=== PATIENT | female | born 1945 | race African-American/Black ===

== ENCOUNTER 2017-05-02 12:58 | Inpatient (IN) | payer MEDICARE, MEDICAID ==
[~2017-05-02] VITALS: Ht 152.4 cm; Wt 83.9 kg
[2017-05-02] MEDS ORDERED: ALBUTEROL (0.083%) 2.5MG/3ML NEB HHN STA (15:26)
[2017-05-02 16:04] LABS: BASOPHILS % 0.1 % (0.0-2.0); HEMOGLOBIN. 9.4 g/dL (14.0-18.0); LYMPHOCYTES % 9.1 % (20.0-50.0); MEAN CORPUSCULAR HEMOGLOBIN 24.7 pg (28.0-32.0); MEAN CORPUSCULAR VOLUME 73.9 fL (80.0-94.0); MEAN PLATELET VOLUME 7.9 fl (7.4-10.4); MONOCYTES % 8.9 % (2.0-8.0); NEUTROPHILS % 81.9 % (40.0-76.0); PLATELET 476 x1000/uL (130-400); RED BLOOD CELL COUNT 3.79 mill/uL (4.7-6.1); RED CELL DISTRIBUTION WIDTH 18.5 % (11.6-14.6)
[2017-05-02 16:11] LABS: INR 1.2; PROTHROMBIN TIME 12.2 sec (9.4-11.6)
[2017-05-02 16:12] LABS: CHLORIDE 92 mEq/L (98-107)
[2017-05-02] MEDS ORDERED: POTASSIUM CHLORIDE 20MEQ TABLET SR PO ONE (16:45)
[2017-05-02] MEDS ORDERED: FUROSEMIDE 40MG/4ML VIAL IVP ONE (16:45)
[2017-05-02 16:54] LABS: BG BASE EXCESS 3.6 mmol/L (-2.0-2.0); BG CARBOXYHEMOGLOBIN 0.6 % (0.5-1.5); BG DEOXYHEMOGLOBIN 3.9 % (0.0-5.0); BG FRACTION INSPIRED OXYGEN 32; BG HCO3 ACT 28.7 mmol/L (22.0-26.0); BG METHEMOGLOBIN 0.3 % (0.0-1.5); BG OXYGEN SATURATION 96.1 % (92.0-98.5); BG OXYHEMOGLOBIN 95.2 % (94.0-97.0); BG PH 7.413 (7.350-7.450); BG PO2 98.3 mmHg (75.0-100.0); BG SAMPLE SITE RIGHT BRACHIAL; BG VENT MODE NASAL CANNULA
[2017-05-02] MEDS ORDERED: IPRATROPIUM/ALBUTEROL 0.5-3(2.5)MG/3ML NEB INH PRN (18:00)
[2017-05-02] MEDS ORDERED: GUAIFENESIN 200MG/10ML SUGAR FREE UDC PO PRN (18:00)
[2017-05-02] MEDS ORDERED: NA PHOS,M-B/NA PHOS,DI-BA ENEMA 118ML PR PRN (18:00)
[2017-05-02] MEDS ORDERED: ONDANSETRON HCL 4MG/2ML VIAL IV PRN (18:00)
[2017-05-02] MEDS ORDERED: DOCUSATE SODIUM 100MG CAPSULE PO PRN (18:00)
[2017-05-02] MEDS ORDERED: MORPHINE SULFATE 4 MG/ML CPJ (NOT FOR IM USE) IV PRN (18:00)
[2017-05-02] MEDS ORDERED: CLONIDINE 0.1MG TABLET PO PRN (18:00)
[2017-05-02] MEDS ORDERED: NITROGLYCERIN 0.4MG TABLET SL SL PRN (18:00)
[2017-05-02] MEDS ORDERED: DIPHENHYDRAMINE 50MG/ML VIAL IV PRN (18:00)
[2017-05-02] MEDS ORDERED: ACETAMINOPHEN 325MG TABLET PO PRN (18:00)
[2017-05-02] MEDS ORDERED: LORAZEPAM 0.5MG TABLET PO PRN (18:00)
[2017-05-02] MEDS ORDERED: MAGNESIUM/ALUMINUM HYDROXIDE/SIMETHICONE 30ML UDC PO PRN (18:00)
[2017-05-02] MEDS ORDERED: ZOLPIDEM TARTRATE 5MG TABLET PO PRN (18:00)
[2017-05-02] MEDS ORDERED: TRAMADOL 50MG TABLET PO PRN (18:00)
[2017-05-02 20:00] VITALS: BP_SYST 136; BP_SYST 145; BP_DIAS 82; BP_DIAS 86
[2017-05-02] MEDS ORDERED: KCL 20MEQ/100ML PREMIX 100 ML IV NR (20:00)
[2017-05-02] MEDS ORDERED: ENOXAPARIN 40MG/0.4ML SYR SUBCUT SCH (21:00)
[2017-05-02] MEDS ORDERED: POTASSIUM CHLORIDE 20MEQ TABLET SR PO NR (21:00)
[2017-05-02] MEDS: FAMOTIDINE 20MG/2ML VIAL IV SCH (21:37)
[2017-05-02] MEDS: FUROSEMIDE 40MG/4ML VIAL IVP SCH (21:37)
[2017-05-02] MEDS: GUAIFENESIN/DM 600MG/30MG ER TAB 12HR PO SCH (21:38)
[2017-05-02] MEDS: SPIRONOLACTONE 25MG TABLET PO SCH (21:41)
[2017-05-02] MEDS: LISINOPRIL 20MG TABLET PO SCH (21:42)
[2017-05-02 22:00] VITALS: BP 147/77
[2017-05-03] VITALS (13 sets, daily range): BP systolic 112–143; BP diastolic 48–87
[2017-05-03] LABS: CREATINE KINASE MB FRACTION 29.3 ng/mL (0.5-3.6)
[2017-05-03 07:16] LABS: CREATINE KINASE MB FRACTION 24.9 ng/mL (0.5-3.6)
[2017-05-03] MEDS: LISINOPRIL 20MG TABLET PO SCH ×2 (09:23→20:26)
[2017-05-03] MEDS: GUAIFENESIN/DM 600MG/30MG ER TAB 12HR PO SCH ×2 (09:23→20:23)
[2017-05-03] MEDS: FUROSEMIDE 40MG/4ML VIAL IVP SCH ×2 (09:23→20:25)
[2017-05-03] MEDS: SPIRONOLACTONE 25MG TABLET PO SCH ×2 (09:23→20:26)
[2017-05-03] MEDS: FAMOTIDINE 20MG/2ML VIAL IV SCH ×2 (09:23→20:25)
[2017-05-03] MEDS: ASPIRIN 325MG EC TABLET PO SCH (09:23)
[2017-05-03 10:23] LABS: CHLORIDE 95 mEq/L (98-107)
[2017-05-03 14:52] LABS: HEMATOCRIT 26.9 % (42.0-52.0); HEMOGLOBIN 8.9 g/dL (14.0-18.0); MEAN CORPUSCULAR HEMOGLOBIN 24.7 pg (28.0-32.0); MEAN CORPUSCULAR VOLUME 74.6 fL (80.0-94.0); PLATELET 438 x1000/uL (130-400); RED CELL DISTRIBUTION WIDTH 18.6 % (11.6-14.6)
[2017-05-03 15:22] LABS: AMMONIA < 25 uMol/L (<32)
[2017-05-03 15:23] LABS: TOTAL IRON BINDING CAPACITY 189 ug/dL (250-450)
[2017-05-03 16:11] LABS: HEPATITIS B SURFACE ANTIGEN NEGATIVE
[2017-05-03 16:39] LABS: HEPATITIS B CORE AB IGM NEGATIVE
[2017-05-03 16:40] LABS: HEPATITIS A AB IGM NEGATIVE (NEGATIVE)
[2017-05-03] MEDS: MONTELUKAST SODIUM 10MG TABLET PO SCH (18:03)
[2017-05-03] MEDS: ENOXAPARIN 30MG/0.3ML SYR SUBCUT SCH (20:25)
[2017-05-03] MEDS: IPRATROPIUM/ALBUTEROL 0.5-3(2.5)MG/3ML NEB HHN SCH (21:09)
[2017-05-03 22:05] LABS: CLARITY URINE CLOUDY (CLEAR); COLOR URINE YELLOW (YELLOW); KETONES URINE NEGATIVE (NEGATIVE); LEUKOCYTE ESTERASE URINE TRACE (NEGATIVE); NITRITE URINE NEGATIVE (NEGATIVE); OCCULT BLOOD URINE 2+ (NEGATIVE); PROTEIN URINE 4+ (NEGATIVE); SPECIFIC GRAVITY URINE 1.019 (1.005-1.030); UROBILINOGEN URINE 0.2 E.U./dL (0.2-1.0)
[2017-05-03 22:14] LABS: *AMPHETAMINES SCREEN URINE NEGATIVE (NEGATIVE); *BARBITURATES SCREEN URINE NEGATIVE (NEGATIVE); *BENZODIAZEPINES SCREEN URINE NEGATIVE (NEGATIVE); *COCAINE SCREEN URINE NEGATIVE (NEGATIVE); CANNABINOID URINE SCREEN NEGATIVE (NEGATIVE); METHADONE URINE SCREEN NEGATIVE (NEGATIVE); OPIATES URINE SCREEN NEGATIVE (NEGATIVE); PHENCYCLIDINE URINE SCREEN NEGATIVE (NEGATIVE)
[2017-05-04] VITALS (12 sets, daily range): BP systolic 135–168; BP diastolic 54–89
[2017-05-04] MEDS: IPRATROPIUM/ALBUTEROL 0.5-3(2.5)MG/3ML NEB HHN SCH ×4 (02:50→20:30)
[2017-05-04] MEDS: FUROSEMIDE 40MG/4ML VIAL IVP SCH ×2 (08:17→20:37)
[2017-05-04] MEDS: FAMOTIDINE 20MG/2ML VIAL IV SCH ×2 (08:17→20:37)
[2017-05-04] MEDS: GUAIFENESIN/DM 600MG/30MG ER TAB 12HR PO SCH ×2 (08:17→20:37)
[2017-05-04] MEDS: LISINOPRIL 20MG TABLET PO SCH ×2 (08:18→20:37)
[2017-05-04] MEDS: ASPIRIN 325MG EC TABLET PO SCH (08:18)
[2017-05-04] MEDS: SPIRONOLACTONE 25MG TABLET PO SCH ×2 (08:18→20:37)
[2017-05-04] MEDS: ENOXAPARIN 30MG/0.3ML SYR SUBCUT SCH (08:19)
[2017-05-04] MEDS ORDERED: LEVOFLOXACIN 250MG TABLET PO SCH (11:00)
[2017-05-04] MEDS: MONTELUKAST SODIUM 10MG TABLET PO SCH (16:58)
[2017-05-04 18:01] LABS: FOLIC ACID (FOLATE) SERUM 9.7 ng/mL (>5.38)
[2017-05-05] VITALS (14 sets, daily range): BP systolic 127–163; BP diastolic 61–111
[2017-05-05] MEDS: IPRATROPIUM/ALBUTEROL 0.5-3(2.5)MG/3ML NEB HHN SCH ×4 (02:30→21:24)
[2017-05-05 08:13] LABS: BASOPHILS % 0.1 % (0.0-2.0); HEMATOCRIT. 25.8 % (36.0-48.0); HEMOGLOBIN. 8.6 g/dL (12.0-16.0); LYMPHOCYTES % 9.4 % (20.0-50.0); MEAN CORPUSCULAR HEMOGLOBIN 24.7 pg (28.0-32.0); MEAN CORPUSCULAR VOLUME 74.2 fL (81.0-99.0); MEAN PLATELET VOLUME 7.9 fl (7.4-10.4); MONOCYTES % 5.4 % (2.0-8.0); NEUTROPHILS % 85.1 % (40.0-76.0); PLATELET 521 x1000/uL (130-400); RED BLOOD CELL COUNT 3.48 mill/uL (4.2-5.4); RED CELL DISTRIBUTION WIDTH 18.9 % (11.6-14.6)
[2017-05-05 08:33] LABS: CHLORIDE 96 mEq/L (98-107)
[2017-05-05] MEDS ORDERED: ENOXAPARIN 40MG/0.4ML SYR SUBCUT SCH (09:00)
[2017-05-05] MEDS ORDERED: POTASSIUM CHLORIDE 20MEQ TABLET SR PO NR ×2 (09:15→16:00)
[2017-05-05] MEDS: SPIRONOLACTONE 25MG TABLET PO SCH ×2 (09:24→21:00)
[2017-05-05] MEDS: LISINOPRIL 20MG TABLET PO SCH ×2 (09:24→21:00)
[2017-05-05] MEDS: FUROSEMIDE 40MG/4ML VIAL IVP SCH ×2 (09:25→21:41)
[2017-05-05] MEDS: FAMOTIDINE 20MG/2ML VIAL IV SCH (09:25)
[2017-05-05] MEDS: ASPIRIN 325MG EC TABLET PO SCH (09:25)
[2017-05-05] MEDS: GUAIFENESIN/DM 600MG/30MG ER TAB 12HR PO SCH ×2 (09:29→21:00)
[2017-05-05 09:34] LABS: BG BASE EXCESS 4.9 mmol/L (-2.0-2.0); BG CARBOXYHEMOGLOBIN 0.3 % (0.5-1.5); BG DEOXYHEMOGLOBIN 4.8 % (0.0-5.0); BG FRACTION INSPIRED OXYGEN 32; BG HCO3 ACT 31.3 mmol/L (22.0-26.0); BG METHEMOGLOBIN 0.1 % (0.0-1.5); BG OXYGEN SATURATION 95.2 % (92.0-98.5); BG OXYHEMOGLOBIN 94.8 % (94.0-97.0); BG PH 7.357 (7.350-7.450); BG PO2 91.1 mmHg (75.0-100.0); BG SAMPLE SITE LEFT RADIAL; BG VENT MODE NASAL CANNULA
[2017-05-05] MEDS ORDERED: HALOPERIDOL LACTATE 5MG/ML VIAL IM PRN (10:30)
[2017-05-05] MEDS ORDERED: LACTULOSE 20G/30ML UDC PO PRN ×2 (10:57→21:00)
[2017-05-05] MEDS ORDERED: LEVOFLOXACIN 500MG TABLET PO SCH (11:00)
[2017-05-05] MEDS ORDERED: LEVOFLOXACIN 250MG TABLET PO SCH (11:00)
[2017-05-05] MEDS: AMLODIPINE 2.5MG TABLET PO SCH ×2 (13:42→21:00)
[2017-05-05] MEDS ORDERED: BUDESONIDE 0.5MG/2ML NEB HHN SCH (14:30)
[2017-05-05] MEDS: MONTELUKAST SODIUM 10MG TABLET PO SCH (16:14)
[2017-05-05] MEDS ORDERED: LEVOFLOXACIN 750MG PREMIX 150 ML IV SCH (16:45)
[2017-05-05] MEDS ORDERED: CEFTRIAXONE 1 G PREMIX 50 ML IV SCH (20:00)
[2017-05-06] VITALS: BP 128/76
[2017-05-06] MEDS ORDERED: POTASSIUM CHLORIDE 20MEQ TABLET SR PO SCH (09:00)
[2017-05-06] MEDS ORDERED: FAMOTIDINE 20MG/2ML VIAL IV SCH (09:00)
== END 2017-05-06 01:45 | disposition short-term general hospital (02) | DRG 720 ==
LOC: ER 12:58 → EDBEDREQSVC 16:43 → EDBEDREQ 16:43 → 3WST 16:57 → EDSEX 16:57 → EDBEDREQTM 17:00 → EDBEDREQ 17:00 → SUPCPDRO 17:50 → ENRESERV 17:54
PROVIDERS: ADMIT Internal Medicine; ATTEND Internal Medicine
PROC: 5A09357 Assistance with Respiratory Ventilation, Less than 24 Consecutive Hours, Continuous Positive Airway Pressure (ICD-10-PCS; principal; 2017-05-02)
DX: A41.9 Sepsis, unspecified organism (principal); J96.00 Acute respiratory failure, unspecified whether with hypoxia or hypercapnia; N17.0 Acute kidney failure with tubular necrosis; E43 Unspecified severe protein-calorie malnutrition; I50.23 Acute on chronic systolic (congestive) heart failure; I31.3 Pericardial effusion (noninflammatory); E87.0 Hyperosmolality and hypernatremia; J18.9 Pneumonia, unspecified organism; E83.51 Hypocalcemia; I11.0 Hypertensive heart disease with heart failure; I48.0 Paroxysmal atrial fibrillation; I27.20 Pulmonary hypertension, unspecified; E87.6 Hypokalemia; E87.1 Hypo-osmolality and hyponatremia; E78.2 Mixed hyperlipidemia; D50.9 Iron deficiency anemia, unspecified; D63.8 Anemia in other chronic diseases classified elsewhere; J44.1 Chronic obstructive pulmonary disease with (acute) exacerbation; M62.82 Rhabdomyolysis; J44.0 Chronic obstructive pulmonary disease with (acute) lower respiratory infection; N39.0 Urinary tract infection, site not specified; Z87.891 Personal history of nicotine dependence
CPT/HCPCS: 36415; 36600; 70551; 71045; 71250; 76700; 80048; 80053; 80061; 80305; 81003; 82140; 82375; 82550; 82553; 82607; 82693; 82746; 82805; 83036; 83540; 83550; 83735; 83880; 84132; 84443; 84484; 85025; 85027; 85610; 86705; 86709; 86803; 87340; 93005; 93306; 93970; 94640; 94660; 96374; 97116; 97162; 97166; 97530; 97535; 99285; J0696; J1630; J1650; J1940; J3480; J3490; J7050; J7611; J7620

== ENCOUNTER 2017-06-01 08:18 | Inpatient (IN) | payer MEDICARE, MEDICAID ==
[~2017-06-01] VITALS: Ht 152.4 cm; Wt 76.2 kg
[2017-06-01] MEDS ORDERED: NITROGLYCERIN OINT 1GM/INCH UDPKT TD STA (09:32)
[2017-06-01] MEDS ORDERED: ASPIRIN 81MG TABLET PO STA (09:32)
[2017-06-01] MEDS ORDERED: FUROSEMIDE 40MG/4ML VIAL IV STA (09:32)
[2017-06-01 10:00] LABS: BASOPHILS % 0.2 % (0.0-2.0); HEMATOCRIT. 31.8 % (36.0-48.0); HEMOGLOBIN. 10.1 g/dL (12.0-16.0); LYMPHOCYTES % 11.8 % (20.0-50.0); MEAN CORPUSCULAR HEMOGLOBIN 25.4 pg (28.0-32.0); MEAN CORPUSCULAR VOLUME 79.9 fL (81.0-99.0); MEAN PLATELET VOLUME 8.3 fl (7.4-10.4); MONOCYTES % 7.6 % (2.0-8.0); NEUTROPHILS % 80.4 % (40.0-76.0); PLATELET 374 x1000/uL (130-400); RED BLOOD CELL COUNT 3.97 mill/uL (4.2-5.4); RED CELL DISTRIBUTION WIDTH 24.7 % (11.6-14.6)
[2017-06-01 10:06] LABS: CHLORIDE 100 mEq/L (98-107)
[2017-06-01 10:08] LABS: INR 1.6; PARTIAL THROMBOPLASTIN TIME 26.9 sec (23.4-31.0); PROTHROMBIN TIME 16.4 sec (9.4-11.6)
[2017-06-01 10:29] LABS: PLATELET ESTIMATE NORMAL
[2017-06-01] MEDS ORDERED: POTASSIUM CHLORIDE 10MEQ TABLET SR PO ONE (11:15)
[2017-06-01] MEDS ORDERED: DIPHENHYDRAMINE 50MG/ML VIAL IV PRN (13:45)
[2017-06-01] MEDS ORDERED: ACETAMINOPHEN 325MG TABLET PO PRN (13:45)
[2017-06-01] MEDS ORDERED: HYDROCODONE/ACETAMINOPHEN 5/325MG TABLET PO PRN (13:45)
[2017-06-01] MEDS ORDERED: POTASSIUM CHLORIDE 20MEQ TABLET SR PO NR (13:45)
[2017-06-01] MEDS ORDERED: CLONIDINE 0.1MG TABLET PO PRN ×2 (13:45→16:28)
[2017-06-01] MEDS ORDERED: ONDANSETRON HCL 4MG/2ML VIAL IV PRN (13:45)
[2017-06-01 14:34] LABS: *AMPHETAMINES SCREEN URINE NEGATIVE (NEGATIVE); *BARBITURATES SCREEN URINE NEGATIVE (NEGATIVE)
[2017-06-01 14:35] LABS: *BENZODIAZEPINES SCREEN URINE NEGATIVE (NEGATIVE); *COCAINE SCREEN URINE NEGATIVE (NEGATIVE); CANNABINOID URINE SCREEN NEGATIVE (NEGATIVE); METHADONE URINE SCREEN NEGATIVE (NEGATIVE); OPIATES URINE SCREEN NEGATIVE (NEGATIVE); PHENCYCLIDINE URINE SCREEN NEGATIVE (NEGATIVE)
[2017-06-01 16:00] VITALS: BP 115/81
[2017-06-01 18:08] VITALS: BP 115/81
[2017-06-01] MEDS ORDERED: ATOR20TA65 PO (19:54)
[2017-06-01] MEDS ORDERED: LEVO100T9 PO (19:54)
[2017-06-01] MEDS ORDERED: LOSA100T14 PO (19:54)
[2017-06-01] MEDS ORDERED: ASPI-1159 PO (19:54)
[2017-06-01] MEDS ORDERED: VITAMIN D (19:54)
[2017-06-01] MEDS ORDERED: FERR325T6 PO (19:54)
[2017-06-01] MEDS ORDERED: OMEP40CA34 PO (19:54)
[2017-06-01] MEDS ORDERED: ALBU18HF2 IH (19:54)
[2017-06-01] MEDS ORDERED: FURO-151 PO (19:54)
[2017-06-01] MEDS ORDERED: SPIR25TA4 PO (19:54)
[2017-06-01 20:00] VITALS: BP 110/71
[2017-06-01] MEDS ORDERED: PNEUMOCOCCAL 23-VAL P-SAC VAC 0.5 ML IM ONE (20:00)
[2017-06-01] MEDS ORDERED: ENOXAPARIN 40MG/0.4ML SYR SUBCUT SCH (20:00)
[2017-06-01] MEDS: AMLODIPINE 2.5MG TABLET PO SCH (20:22)
[2017-06-02] VITALS: BP 92/57
[2017-06-02 04:00] VITALS: BP 102/59
[2017-06-02 07:06] LABS: CHLORIDE 102 mEq/L (98-107)
[2017-06-02 07:12] LABS: BASOPHILS % 0.2 % (0.0-2.0); HEMATOCRIT. 27.9 % (36.0-48.0); LYMPHOCYTES % 12.4 % (20.0-50.0); MEAN CORPUSCULAR VOLUME 80.9 fL (81.0-99.0); MEAN PLATELET VOLUME 8.6 fl (7.4-10.4); MONOCYTES % 10.5 % (2.0-8.0); NEUTROPHILS % 76.9 % (40.0-76.0); PLATELET 332 x1000/uL (130-400); RED BLOOD CELL COUNT 3.45 mill/uL (4.2-5.4); RED CELL DISTRIBUTION WIDTH 24.3 % (11.6-14.6)
[2017-06-02 07:19] LABS: CREATINE KINASE MB FRACTION 9.7 ng/mL (0.5-3.6)
[2017-06-02 07:21] LABS: CREATINE KINASE 130 IU/L (26-192)
[2017-06-02 07:23] LABS: HDL CHOLESTEROL 45 mg/dL (40-59)
[2017-06-02 07:24] LABS: LDL CHOLESTEROL 44 mg/dL (5-100)
[2017-06-02 08:00] VITALS: BP 117/67
[2017-06-02] MEDS: POTASSIUM CHLORIDE 20MEQ TABLET SR PO SCH (08:52)
[2017-06-02] MEDS: AMLODIPINE 2.5MG TABLET PO SCH ×2 (08:55→21:23)
[2017-06-02] MEDS ORDERED: FUROSEMIDE 40MG/4ML VIAL IV SCH (09:00)
[2017-06-02] MEDS ORDERED: POTASSIUM CHLORIDE 20MEQ TABLET SR PO NR (11:30)
[2017-06-02 12:00] VITALS: BP_SYST 107; BP_SYST 145; BP_DIAS 66; BP_DIAS 85
[2017-06-02 13:41] LABS: AMMONIA 30 uMol/L (<32)
[2017-06-02] MEDS: CEFTRIAXONE 1 G PREMIX 50 ML IV SCH (14:50)
[2017-06-02 15:39] LABS: BG BASE EXCESS 2.4 mmol/L (-2.0-2.0); BG CARBOXYHEMOGLOBIN 0.3 % (0.5-1.5); BG DEOXYHEMOGLOBIN 2.5 % (0.0-5.0); BG FRACTION INSPIRED OXYGEN 32; BG HCO3 ACT 30.5 mmol/L (22.0-26.0); BG METHEMOGLOBIN 0.1 % (0.0-1.5); BG OXYGEN SATURATION 97.5 % (92.0-98.5); BG OXYHEMOGLOBIN 97.1 % (94.0-97.0); BG PCO2 67.6 mmHg (35.0-45.0); BG PH 7.272 (7.350-7.450); BG PO2 121.2 mmHg (75.0-100.0); BG SAMPLE SITE RIGHT RADIAL; BG TOTAL HEMOGLOBIN 10.1 g/dL (12.0-18.0); BG VENT MODE NASAL CANNULA
[2017-06-02 16:00] VITALS: BP 106/68
[2017-06-02] MEDS ORDERED: ALBUMIN HUMAN 25GM/100ML (25%) IV NR (17:00)
[2017-06-02 20:00] VITALS: BP 115/76
[2017-06-02] MEDS: FUROSEMIDE 40MG/4ML VIAL IV SCH (21:23)
[2017-06-02] MEDS: ENOXAPARIN 30MG/0.3ML SYR SUBCUT SCH (21:24)
[2017-06-03] VITALS: BP 96/52
[2017-06-03 04:00] VITALS: BP 135/67
[2017-06-03 06:23] LABS: CLARITY URINE CLEAR (CLEAR); COLOR URINE YELLOW (YELLOW); KETONES URINE NEGATIVE (NEGATIVE); LEUKOCYTE ESTERASE URINE TRACE (NEGATIVE); NITRITE URINE NEGATIVE (NEGATIVE); OCCULT BLOOD URINE 2+ (NEGATIVE); PH URINE 5.5 (4.5-8.0); PROTEIN URINE 4+ (NEGATIVE); SPECIFIC GRAVITY URINE 1.016 (1.005-1.030); UROBILINOGEN URINE 0.2 E.U./dL (0.2-1.0)
[2017-06-03] MEDS: FUROSEMIDE 40MG/4ML VIAL IV SCH ×2 (06:29→17:38)
[2017-06-03 07:30] LABS: BASOPHILS % 0.3 % (0.0-2.0); EOSINOPHILS % 0.1 % (0.0-5.0); HEMATOCRIT. 30.5 % (36.0-48.0); HEMOGLOBIN. 9.5 g/dL (12.0-16.0); LYMPHOCYTES % 14.5 % (20.0-50.0); MEAN CORPUSCULAR HEMOGLOBIN 25.7 pg (28.0-32.0); MEAN CORPUSCULAR VOLUME 82.2 fL (81.0-99.0); MEAN PLATELET VOLUME 8.5 fl (7.4-10.4); MONOCYTES % 10.2 % (2.0-8.0); NEUTROPHILS % 74.9 % (40.0-76.0); PLATELET 341 x1000/uL (130-400); RED BLOOD CELL COUNT 3.71 mill/uL (4.2-5.4)
[2017-06-03 08:00] VITALS: BP 103/63
[2017-06-03 08:05] LABS: CHLORIDE 105 mEq/L (98-107)
[2017-06-03 08:16] LABS: PHOSPHORUS 4.8 mg/dL (2.5-4.9)
[2017-06-03] MEDS: AMLODIPINE 2.5MG TABLET PO SCH ×2 (08:49→21:00)
[2017-06-03] MEDS: POTASSIUM CHLORIDE 20MEQ TABLET SR PO SCH (09:01)
[2017-06-03] MEDS ORDERED: ALBUMIN HUMAN 25GM/100ML (25%) IV SCH (10:30)
[2017-06-03 12:00] VITALS: BP 101/64
[2017-06-03 12:51] LABS: HEPATITIS B SURFACE ANTIGEN NEGATIVE
[2017-06-03 13:19] LABS: HEPATITIS B CORE AB IGM NEGATIVE
[2017-06-03 13:20] LABS: HEPATITIS A AB IGM NEGATIVE (NEGATIVE)
[2017-06-03] MEDS: CEFTRIAXONE 1 G PREMIX 50 ML IV SCH (14:23)
[2017-06-03 16:00] VITALS: BP 116/74
[2017-06-03 20:00] VITALS: BP 111/76
[2017-06-03] MEDS: ENOXAPARIN 30MG/0.3ML SYR SUBCUT SCH (21:21)
[2017-06-03] MEDS: IPRATROPIUM/ALBUTEROL 0.5-3(2.5)MG/3ML NEB INH PRN (21:57)
[2017-06-03] MEDS: BUDESONIDE 0.5MG/2ML NEB HHN SCH (21:57)
[2017-06-04] VITALS: BP 134/86
[2017-06-04 04:00] VITALS: BP 129/86
[2017-06-04] MEDS: IPRATROPIUM/ALBUTEROL 0.5-3(2.5)MG/3ML NEB INH PRN (05:09)
[2017-06-04] MEDS: FUROSEMIDE 40MG/4ML VIAL IV SCH ×2 (05:16→19:11)
[2017-06-04 07:17] LABS: BASOPHILS % 0.1 % (0.0-2.0); HEMATOCRIT. 29.4 % (36.0-48.0); HEMOGLOBIN. 9.4 g/dL (12.0-16.0); LYMPHOCYTES % 8.8 % (20.0-50.0); MEAN CORPUSCULAR HEMOGLOBIN 26.2 pg (28.0-32.0); MEAN CORPUSCULAR VOLUME 81.9 fL (81.0-99.0); MEAN PLATELET VOLUME 8.5 fl (7.4-10.4); MONOCYTES % 6.7 % (2.0-8.0); NEUTROPHILS % 84.4 % (40.0-76.0); PLATELET 311 x1000/uL (130-400); RED BLOOD CELL COUNT 3.59 mill/uL (4.2-5.4); RED CELL DISTRIBUTION WIDTH 24.9 % (11.6-14.6)
[2017-06-04 08:00] VITALS: BP 117/90
[2017-06-04 08:01] LABS: PHOSPHORUS 4.2 mg/dL (2.5-4.9)
[2017-06-04] MEDS: AMLODIPINE 2.5MG TABLET PO SCH ×3 (09:00→21:00)
[2017-06-04] MEDS: POTASSIUM CHLORIDE 20MEQ TABLET SR PO SCH (09:11)
[2017-06-04 12:00] VITALS: BP 149/96
[2017-06-04] MEDS ORDERED: MAGNESIUM 2 G PREMIX 50 ML IV NR (14:30)
[2017-06-04] MEDS: CEFTRIAXONE 1 G PREMIX 50 ML IV SCH (15:34)
[2017-06-04 16:00] VITALS: BP 120/81
[2017-06-04 20:00] VITALS: BP 129/80
[2017-06-04] MEDS: BUDESONIDE 0.5MG/2ML NEB HHN SCH (20:57)
[2017-06-04] MEDS: ENOXAPARIN 30MG/0.3ML SYR SUBCUT SCH (21:19)
[2017-06-05] VITALS (34 sets, daily range): BP systolic 111–149; BP diastolic 59–92
[2017-06-05] MEDS: BUDESONIDE 0.5MG/2ML NEB HHN SCH ×2 (06:00→20:57)
[2017-06-05] MEDS: FUROSEMIDE 40MG/4ML VIAL IV SCH (06:16)
[2017-06-05] MEDS: AMLODIPINE 2.5MG TABLET PO SCH ×2 (09:00→21:00)
[2017-06-05] MEDS: POTASSIUM CHLORIDE 20MEQ TABLET SR PO SCH (09:00)
[2017-06-05 10:39] LABS: BG BASE EXCESS 0.2 mmol/L (-2.0-2.0); BG CARBOXYHEMOGLOBIN 0.2 % (0.5-1.5); BG DEOXYHEMOGLOBIN 9.3 % (0.0-5.0); BG FRACTION INSPIRED OXYGEN 100; BG HCO3 ACT 31.6 mmol/L (22.0-26.0); BG METHEMOGLOBIN 0.6 % (0.0-1.5); BG OXYGEN SATURATION 90.6 % (92.0-98.5); BG OXYHEMOGLOBIN 89.9 % (94.0-97.0); BG PCO2 103.7 mmHg (35.0-45.0); BG PH 7.102 (7.350-7.450); BG PO2 85.9 mmHg (75.0-100.0); BG SAMPLE SITE RIGHT RADIAL; BG TOTAL HEMOGLOBIN 10.2 g/dL (12.0-18.0); BG VENT MODE MASK - NRB
[2017-06-05 11:15] LABS: BASOPHILS % 0.4 % (0.0-2.0); HEMATOCRIT. 32.9 % (36.0-48.0); LYMPHOCYTES % 13.4 % (20.0-50.0); MEAN CORPUSCULAR HEMOGLOBIN 25.9 pg (28.0-32.0); MEAN CORPUSCULAR VOLUME 84.8 fL (81.0-99.0); MEAN PLATELET VOLUME 8.6 fl (7.4-10.4); MONOCYTES % 7.3 % (2.0-8.0); NEUTROPHILS % 78.9 % (40.0-76.0); PLATELET 346 x1000/uL (130-400); RED BLOOD CELL COUNT 3.88 mill/uL (4.2-5.4); RED CELL DISTRIBUTION WIDTH 24.8 % (11.6-14.6)
[2017-06-05 11:59] LABS: PHOSPHORUS 5.4 mg/dL (2.5-4.9)
[2017-06-05 12:03] LABS: BG BASE EXCESS 1.5 mmol/L (-2.0-2.0); BG BILEVEL POS AIRWAY PRESSURE 18/5; BG CARBOXYHEMOGLOBIN 0.5 % (0.5-1.5); BG FRACTION INSPIRED OXYGEN 50; BG METHEMOGLOBIN 0.2 % (0.0-1.5); BG OXYHEMOGLOBIN 93.3 % (94.0-97.0); BG PCO2 81.2 mmHg (35.0-45.0); BG PO2 89.7 mmHg (75.0-100.0); BG SAMPLE SITE LEFT RADIAL; BG TOTAL HEMOGLOBIN 10.2 g/dL (12.0-18.0); BG VENT MODE MASK - BIPAP; BG VENT RATE 20 set
[2017-06-05] MEDS: FUROSEMIDE 100MG/10ML VIAL IV SCH ×2 (12:24→17:18)
[2017-06-05] MEDS: IPRATROPIUM/ALBUTEROL 0.5-3(2.5)MG/3ML NEB HHN SCH ×3 (13:55→20:34)
[2017-06-05] MEDS: CEFTRIAXONE 1 G PREMIX 50 ML IV SCH (14:19)
[2017-06-05 15:25] LABS: BG BASE EXCESS 3.4 mmol/L (-2.0-2.0); BG BILEVEL POS AIRWAY PRESSURE 18/5; BG CARBOXYHEMOGLOBIN 0.4 % (0.5-1.5); BG DEOXYHEMOGLOBIN 5.4 % (0.0-5.0); BG FRACTION INSPIRED OXYGEN 50; BG METHEMOGLOBIN 0.3 % (0.0-1.5); BG OXYGEN SATURATION 94.6 % (92.0-98.5); BG OXYHEMOGLOBIN 93.9 % (94.0-97.0); BG PCO2 65.7 mmHg (35.0-45.0); BG PH 7.292 (7.350-7.450); BG PO2 84.9 mmHg (75.0-100.0); BG SAMPLE SITE RIGHT RADIAL; BG TOTAL HEMOGLOBIN 9.6 g/dL (12.0-18.0); BG VENT MODE MASK - BIPAP; BG VENT RATE 20 set
[2017-06-05] MEDS: ENOXAPARIN 30MG/0.3ML SYR SUBCUT SCH (21:11)
[2017-06-06] VITALS (44 sets, daily range): BP systolic 120–139; BP diastolic 70–98
[2017-06-06] MEDS: IPRATROPIUM/ALBUTEROL 0.5-3(2.5)MG/3ML NEB HHN SCH ×6 (00:18→20:54)
[2017-06-06 02:23] LABS: BG BILEVEL POS AIRWAY PRESSURE 18/5; BG CARBOXYHEMOGLOBIN 0.2 % (0.5-1.5); BG DEOXYHEMOGLOBIN 3.8 % (0.0-5.0); BG FRACTION INSPIRED OXYGEN 50; BG HCO3 ACT 28.8 mmol/L (22.0-26.0); BG METHEMOGLOBIN 0.4 % (0.0-1.5); BG OXYGEN SATURATION 96.2 % (92.0-98.5); BG OXYHEMOGLOBIN 95.6 % (94.0-97.0); BG PCO2 57.4 mmHg (35.0-45.0); BG PH 7.319 (7.350-7.450); BG PO2 99.6 mmHg (75.0-100.0); BG SAMPLE SITE RIGHT RADIAL; BG TOTAL HEMOGLOBIN 9.5 g/dL (12.0-18.0); BG VENT MODE MASK - BIPAP
[2017-06-06 05:41] LABS: BASOPHILS % 0.2 % (0.0-2.0); EOSINOPHILS % 0.1 % (0.0-5.0); HEMATOCRIT. 27.3 % (36.0-48.0); HEMOGLOBIN. 8.9 g/dL (12.0-16.0); LYMPHOCYTES % 12.8 % (20.0-50.0); MEAN CORPUSCULAR HEMOGLOBIN 26.5 pg (28.0-32.0); MEAN CORPUSCULAR VOLUME 81.8 fL (81.0-99.0); MEAN PLATELET VOLUME 8.6 fl (7.4-10.4); NEUTROPHILS % 77.9 % (40.0-76.0); PLATELET 310 x1000/uL (130-400); RED BLOOD CELL COUNT 3.34 mill/uL (4.2-5.4); RED CELL DISTRIBUTION WIDTH 24.8 % (11.6-14.6)
[2017-06-06 06:02] LABS: CHLORIDE 106 mEq/L (98-107)
[2017-06-06 06:09] LABS: PHOSPHORUS 4.8 mg/dL (2.5-4.9)
[2017-06-06] MEDS: FUROSEMIDE 100MG/10ML VIAL IV SCH ×2 (08:00→17:31)
[2017-06-06] MEDS: POTASSIUM CHLORIDE 20MEQ TABLET SR PO SCH (09:00)
[2017-06-06] MEDS: AMLODIPINE 2.5MG TABLET PO SCH ×2 (09:00→21:22)
[2017-06-06 11:44] LABS: FOLIC ACID (FOLATE) SERUM 6.2 ng/mL (>5.38)
[2017-06-06] MEDS ORDERED: IPRATROPIUM/ALBUTEROL 0.5-3(2.5)MG/3ML NEB HHN PRN (12:15)
[2017-06-06] MEDS: METOLAZONE 2.5MG TABLET PO SCH ×2 (13:10→17:05)
[2017-06-06 13:34] LABS: BASOPHILS % 0.3 % (0.0-2.0); EOSINOPHILS % 0.1 % (0.0-5.0); HEMATOCRIT. 27.6 % (36.0-48.0); LYMPHOCYTES % 10.9 % (20.0-50.0); MEAN CORPUSCULAR HEMOGLOBIN 26.7 pg (28.0-32.0); MEAN CORPUSCULAR VOLUME 81.7 fL (81.0-99.0); MEAN PLATELET VOLUME 8.9 fl (7.4-10.4); MONOCYTES % 8.8 % (2.0-8.0); NEUTROPHILS % 79.9 % (40.0-76.0); PLATELET 315 x1000/uL (130-400); RED BLOOD CELL COUNT 3.37 mill/uL (4.2-5.4); RED CELL DISTRIBUTION WIDTH 24.9 % (11.6-14.6)
[2017-06-06 14:12] LABS: CHLORIDE 106 mEq/L (98-107)
[2017-06-06] MEDS: AMPICILLIN 1,000 MG in SODIUM CHLORIDE 0.9% 50 ML IV SCH ×2 (14:22→21:21)
[2017-06-07] VITALS (38 sets, daily range): BP systolic 111–150; BP diastolic 48–96
[2017-06-07] MEDS: IPRATROPIUM/ALBUTEROL 0.5-3(2.5)MG/3ML NEB HHN SCH ×6 (00:09→20:27)
[2017-06-07 05:45] LABS: BG BASE EXCESS 3.8 mmol/L (-2.0-2.0); BG CARBOXYHEMOGLOBIN 0.6 % (0.5-1.5); BG FRACTION INSPIRED OXYGEN 32; BG HCO3 ACT 29.3 mmol/L (22.0-26.0); BG METHEMOGLOBIN 0.2 % (0.0-1.5); BG OXYGEN SATURATION 92.9 % (92.0-98.5); BG OXYHEMOGLOBIN 92.2 % (94.0-97.0); BG PCO2 49.4 mmHg (35.0-45.0); BG PH 7.391 (7.350-7.450); BG PO2 74.4 mmHg (75.0-100.0); BG SAMPLE SITE RIGHT RADIAL; BG TOTAL HEMOGLOBIN 8.6 g/dL (12.0-18.0); BG VENT MODE NASAL CANNULA
[2017-06-07 05:46] LABS: BASOPHILS % 0.3 % (0.0-2.0); EOSINOPHILS % 0.3 % (0.0-5.0); HEMATOCRIT. 23.7 % (36.0-48.0); HEMOGLOBIN. 7.9 g/dL (12.0-16.0); LYMPHOCYTES % 11.4 % (20.0-50.0); MEAN CORPUSCULAR HEMOGLOBIN 26.7 pg (28.0-32.0); MEAN CORPUSCULAR VOLUME 80.4 fL (81.0-99.0); MEAN PLATELET VOLUME 8.6 fl (7.4-10.4); MONOCYTES % 9.4 % (2.0-8.0); NEUTROPHILS % 78.6 % (40.0-76.0); PLATELET 291 x1000/uL (130-400); RED BLOOD CELL COUNT 2.95 mill/uL (4.2-5.4)
[2017-06-07 06:12] LABS: ALBUMIN URINE 56.1 % (.); ALPHA-2-GLOBULIN URINE 3.8 % (.); BETA GLOBULIN URINE 13.7 % (.); GAMMA GLOBULIN URINE 20.5 % (.); TOTAL PROTEIN RANDOM URINE 539.8 mg/dL (Not Estab.)
[2017-06-07] MEDS: AMPICILLIN 1,000 MG in SODIUM CHLORIDE 0.9% 50 ML IV SCH ×3 (06:12→21:16)
[2017-06-07] MEDS: METOLAZONE 2.5MG TABLET PO SCH ×2 (06:12→17:34)
[2017-06-07] MEDS: FUROSEMIDE 100MG/10ML VIAL IV SCH ×2 (06:12→18:08)
[2017-06-07 06:30] LABS: PHOSPHORUS 3.9 mg/dL (2.5-4.9)
[2017-06-07] MEDS: AMLODIPINE 2.5MG TABLET PO SCH ×2 (08:41→21:17)
[2017-06-07 19:57] LABS: HEMATOCRIT 25.2 % (36.0-48.0); HEMOGLOBIN 8.4 g/dL (12.0-16.0)
[2017-06-08] VITALS (24 sets, daily range): BP systolic 113–158; BP diastolic 65–98
[2017-06-08] MEDS: IPRATROPIUM/ALBUTEROL 0.5-3(2.5)MG/3ML NEB HHN SCH ×6 (00:32→21:46)
[2017-06-08 01:57] LABS: HEMATOCRIT 24.5 % (36.0-48.0); HEMOGLOBIN 8.1 g/dL (12.0-16.0)
[2017-06-08] MEDS: FUROSEMIDE 100MG/10ML VIAL IV SCH ×2 (06:30→17:02)
[2017-06-08] MEDS: METOLAZONE 2.5MG TABLET PO SCH ×2 (06:30→17:03)
[2017-06-08] MEDS: AMPICILLIN 1,000 MG in SODIUM CHLORIDE 0.9% 50 ML IV SCH ×3 (06:30→22:00)
[2017-06-08 07:01] LABS: BASOPHILS % 0.4 % (0.0-2.0); EOSINOPHILS % 0.8 % (0.0-5.0); HEMATOCRIT. 25.7 % (36.0-48.0); HEMOGLOBIN. 8.5 g/dL (12.0-16.0); LYMPHOCYTES % 14.1 % (20.0-50.0); MEAN CORPUSCULAR HEMOGLOBIN 26.9 pg (28.0-32.0); MEAN CORPUSCULAR VOLUME 81.5 fL (81.0-99.0); MEAN PLATELET VOLUME 8.8 fl (7.4-10.4); MONOCYTES % 11.3 % (2.0-8.0); NEUTROPHILS % 73.4 % (40.0-76.0); PLATELET 290 x1000/uL (130-400); RED BLOOD CELL COUNT 3.15 mill/uL (4.2-5.4); RED CELL DISTRIBUTION WIDTH 25.4 % (11.6-14.6)
[2017-06-08 07:47] LABS: CHLORIDE 106 mEq/L (98-107)
[2017-06-08] MEDS ORDERED: OMEPRAZOLE 20MG CAPSULE EXTENDED RELEASE PO SCH (07:50)
[2017-06-08 07:57] LABS: PHOSPHORUS 3.5 mg/dL (2.5-4.9)
[2017-06-08] MEDS: AMLODIPINE 2.5MG TABLET PO SCH ×2 (09:02→20:15)
[2017-06-08 09:09] LABS: FOLATE HEMATOCRIT 29.3 % (34.0-46.6)
[2017-06-08 09:09] LABS: ALBUMIN 2.5 g/dL (2.9-4.4); ALPHA-1-GLOBULIN 0.2 g/dL (0.0-0.4); ALPHA-2-GLOBULIN 1.1 g/dL (0.4-1.0); BETA GLOBULIN 0.6 g/dL (0.7-1.3); GAMMA GLOBULINS 0.6 g/dL (0.4-1.8); GLOBULIN TOTAL 2.5 g/dL (2.2-3.9); M-SPIKE Not Observed g/dL (Not Observed)
[2017-06-08] MEDS ORDERED: SODIUM BICARBONATE 4% (2.4MEQ) 5ML VIAL IV ONE (11:18)
[2017-06-08] MEDS ORDERED: LIDOCAINE HCL/PF 1% 10 MG/ML 5ML VIAL ONE (11:18)
[2017-06-08] MEDS ORDERED: DOCUSATE SODIUM 250MG CAPSULE PO SCH (12:30)
[2017-06-08 17:09] LABS: BG BASE EXCESS 3.9 mmol/L (-2.0-2.0); BG BILEVEL POS AIRWAY PRESSURE 18/5; BG CARBOXYHEMOGLOBIN 0.4 % (0.5-1.5); BG DEOXYHEMOGLOBIN 7.7 % (0.0-5.0); BG FRACTION INSPIRED OXYGEN 40; BG HCO3 ACT 30.2 mmol/L (22.0-26.0); BG METHEMOGLOBIN 0.3 % (0.0-1.5); BG OXYGEN SATURATION 92.2 % (92.0-98.5); BG OXYHEMOGLOBIN 91.6 % (94.0-97.0); BG PCO2 54.8 mmHg (35.0-45.0); BG PH 7.359 (7.350-7.450); BG PO2 73.7 mmHg (75.0-100.0); BG SAMPLE SITE RIGHT RADIAL; BG TOTAL HEMOGLOBIN 9.6 g/dL (12.0-18.0); BG VENT MODE MASK - BIPAP; BG VENT RATE 20 set
[2017-06-08 17:09] LABS: FOLATE HEMOLYSATE 329.8 ng/mL (Not Estab.); FOLATE RBC 1126 ng/mL (>498)
[2017-06-09] VITALS: BP 130/61
== END 2017-06-09 00:30 | disposition short-term general hospital (02) | DRG 720 ==
LOC: ER 08:44 → 5WST 12:46 → EDBEDREQ 12:49 → ENRESERV 15:51 → 3WST 06-05 10:56 → CVICU 06-05 15:21
PROVIDERS: ADMIT Internal Medicine; ATTEND Internal Medicine
PROC: 02HV33Z Insertion of Infusion Device into Superior Vena Cava, Percutaneous Approach (ICD-10-PCS; principal; 2017-06-05)
PROC: B548ZZA Ultrasonography of Superior Vena Cava, Guidance (ICD-10-PCS; 2017-06-05)
PROC: 5A09357 Assistance with Respiratory Ventilation, Less than 24 Consecutive Hours, Continuous Positive Airway Pressure (ICD-10-PCS; 2017-06-05)
PROC: 5A09357 Assistance with Respiratory Ventilation, Less than 24 Consecutive Hours, Continuous Positive Airway Pressure (ICD-10-PCS; 2017-06-06)
PROC: 5A09357 Assistance with Respiratory Ventilation, Less than 24 Consecutive Hours, Continuous Positive Airway Pressure (ICD-10-PCS; 2017-06-07)
PROC: 0W9B3ZZ Drainage of Left Pleural Cavity, Percutaneous Approach (ICD-10-PCS; 2017-06-08)
PROC: 5A09357 Assistance with Respiratory Ventilation, Less than 24 Consecutive Hours, Continuous Positive Airway Pressure (ICD-10-PCS; 2017-06-08)
DX: A41.9 Sepsis, unspecified organism (principal); I21.4 Non-ST elevation (NSTEMI) myocardial infarction; N17.0 Acute kidney failure with tubular necrosis; E43 Unspecified severe protein-calorie malnutrition; J96.02 Acute respiratory failure with hypercapnia; J96.01 Acute respiratory failure with hypoxia; E83.42 Hypomagnesemia; I27.20 Pulmonary hypertension, unspecified; I50.33 Acute on chronic diastolic (congestive) heart failure; N17.9 Acute kidney failure, unspecified; I07.1 Rheumatic tricuspid insufficiency; N18.3 Chronic kidney disease, stage 3 (moderate); E87.5 Hyperkalemia; I13.0 Hypertensive heart and chronic kidney disease with heart failure and stage 1 through stage 4 chronic kidney disease, or unspecified chronic kidney disease; J44.1 Chronic obstructive pulmonary disease with (acute) exacerbation; N39.0 Urinary tract infection, site not specified; K74.60 Unspecified cirrhosis of liver; D63.8 Anemia in other chronic diseases classified elsewhere; E87.0 Hyperosmolality and hypernatremia; E87.2 Acidosis; E66.9 Obesity, unspecified; B95.2 Enterococcus as the cause of diseases classified elsewhere; E87.6 Hypokalemia; I49.1 Atrial premature depolarization; K21.9 Gastro-esophageal reflux disease without esophagitis; K22.8 Other specified diseases of esophagus; Z82.49 Family history of ischemic heart disease and other diseases of the circulatory system; Z87.891 Personal history of nicotine dependence; Z71.3 Dietary counseling and surveillance; Z68.32 Body mass index [BMI] 32.0-32.9, adult
CPT/HCPCS: 32555; 36415; 36569; 36600; 70551; 71045; 71250; 76770; 76937; 80048; 80053; 80061; 80305; 81003; 82140; 82270; 82375; 82550; 82553; 82570; 82607; 82746; 82747; 82805; 82962; 83735; 83880; 84100; 84155; 84156; 84165; 84166; 84443; 84484; 85014; 85018; 85025; 85044; 85379; 85610; 85730; 86160; 86705; 86709; 86803; 87040; 87070; 87077; 87086; 87186; 87205; 87340; 90732; 93005; 93970; 93971; 94640; 94660; 96374; 97162; 97166; 97530; 99285; C1725; C1893; J0290; J0696; J1200; J1650; J1940; J3475; J3490; J7040; J7050; J7620; J7626; P9047; A4315